=== PATIENT | female | born 1995 | race American Indian/Alaskan Native ===

== ENCOUNTER 2021-08-16 01:06 | Inpatient (IN) | payer OTHER ==
[2021-08-16] MEDS ORDERED: ceFAZolin 1 GM in Sodium Chloride 0.9% 50 ML IV ONE (02:15)
[2021-08-16] MEDS ORDERED: Oxytocin/Normal Saline 30 UNIT/500 ML BAG IV ONE (02:15)
[2021-08-16] MEDS ORDERED: Carboprost Tromethamine 250 MCG/1 ML Amp IM PRN ×3 (02:23→14:14)
[2021-08-16] MEDS ORDERED: Acetaminophen 325 MG Tab PO PRN ×2 (02:23→14:14)
[2021-08-16] MEDS ORDERED: Ondansetron 4 MG/2 ML SDV IVPUSH PRN ×2 (02:23→14:14)
[2021-08-16] MEDS ORDERED: Lidocaine 1% 30 ML SDV INJECT PRN (02:23)
[2021-08-16] MEDS ORDERED: Misoprostol 400 MCG (4 X 100 MCG TAB) RECTAL PRN ×2 (02:23→14:14)
[2021-08-16] MEDS ORDERED: Lactated Ringers 1,000 ML IV ONE (02:23)
[2021-08-16] MEDS ORDERED: Tranexamic Acid 1,000 MG in Sodium Chloride 0.9% 100 ML IV PRN ×3 (02:23→14:14)
[2021-08-16] MEDS ORDERED: Methylergonovine 0.2 MG/1 ML Amp IM PRN ×2 (02:23→14:14)
[2021-08-16] MEDS ORDERED: Ondansetron 4 MG/2 ML SDV ONE (02:23)
[2021-08-16] MEDS ORDERED: Sodium Chloride 0.9% 10 ML Syringe FLUSH PRN ×2 (02:23→08:03)
[2021-08-16] MEDS ORDERED: Lactated Ringers 1,000 ML IV SCH ×3 (02:30→08:15)
[2021-08-16] MEDS ORDERED: Oxytocin/Normal Saline 30 UNIT/500 ML BAG IV SCH ×2 (02:30→08:15)
[2021-08-16] MEDS ORDERED: EPINEPHrine 1 MG/ML SDV ONE ×2 (02:41→09:59)
[2021-08-16] MEDS ORDERED: fentaNYL 100 MCG/2 ML SDV ONE ×2 (02:41→08:19)
[2021-08-16] MEDS: Lactated Ringers 1,000 ML IV SCH ×5 (02:41→23:13)
--- NOTE | 2021-08-16 03:28 | PCM.PRNOTE ---
- Free Text/Narrative Note: Requested to provide analgesia to full term patient in severe pain. Upon entering the room, patient is sitting on edge of bed complaining of severe abdominal/pelvic pain and discomfort. Procedure was discussed with patient including adverse outcomes and expectations. Pt consented to analgesia, SAB/IT. Pt placed into a proper sitting position. Landmarks for SAB/IT were identified and marked. Hands were washed and appropriate PPE was applied. Back was prepped with betadine x3. A sterile, transparent, fenestrated drape was applied. Excess betadine was removed. Using 3 mL of a 1% lidocaine solution, a skin wheel was placed at the L2/L3 interspace. A 24 ga (4 inch) Pencan spinal needle was inserted until positive for CSF. Negative for heme or paresthesias. Injected fentanyl 30 mcg, sufentanil 25 mcg, and 7.5 mg of a 0.75% bupivacaine solution with an epi wash. Pt was placed left lateral tilt position for approximately 20 minutes. There were zero complications or adverse outcomes. Will continue to monitor. Procedure Date & Time: 08/16/21 [id number]
[2021-08-16 03:48] LABS: AMPHETAMINES,URINE NEGATIVE (NEGATIVE); BARBITURATES,URINE NEGATIVE (NEGATIVE); BENZODIAZEPINE,URINE NEGATIVE (NEGATIVE); MDMA (ECSTASY), URINE NEGATIVE (NEGATIVE); METHADONE,URINE NEGATIVE (NEGATIVE); METHAMPHETAMINES,URINE NEGATIVE (NEGATIVE); OPIATES,URINE NEGATIVE (NEGATIVE); OXYCODONE,URINE NEGATIVE (NEGATIVE); PHENCYCLIDINE,URINE NEGATIVE (NEGATIVE); TCA,URINE NEGATIVE (NEGATIVE)
--- NOTE | 2021-08-16 05:29 | HP ---
CHIEF COMPLAINT: Active labor. HISTORY OF PRESENT ILLNESS: Carmela is a 26yo G2, P0010 at 38 and 6/7ths weeks gestational age based on 1st trimester ultrasound. The patient reports she began to feel pelvic pressure and contractions at 9 p.m. on Tuesday, August 15. Around midnight, contractions were noted to be 3 minutes apart. The patient began heading to [place] for delivery when she had father of baby stop the car and EMS contacted because contractions became too intense. Enroute, Carmela had a low blood pressure, so patient was brought in by ambulance to this Labor and Delivery unit. Upon presentation to Labor and Delivery, the patient was 4 cm dilated, 90% effaced, and -1 station. 30 minutes later, patient was found to be 6 cm dilated, 95% effaced, and 0 station. Due to rapid progression of dilation, the patient was deemed not a candidate for transfer to [place]. REVIEW OF SYSTEMS: The patient denies headache, vision changes, fever, chest pain, shortness of breath, right upper quadrant pain, vaginal bleeding, leakage of fluid. Endorses contractions and pedal edema. OBSTETRICS HISTORY: Complete spontaneous in 2019. course complicated only by mild depression not treated with medication, morbid obesity, high risk for prior spontaneous , and impaired 1hr OGTT. care initiated in [place] with transfer of care to [place] [facility] at 31 weeks due to morbid obesity with plans for IOL on 08/24/2021. LABS: Blood type B positive, antibody screen negative, rubella negative, syphilis nonreactive, hep B negative, HIV negative, gonorrhea negative, chlamydia negative, hep C negative. TSH was 4.2. Impaired 1-hour glucose tolerance test of 155, 3-hour glucose tolerance test normal. Maternal quad screen negative. Growth ultrasound at 36 weeks revealed normal anatomy and estimated weight at 44th percentile with normal ABDIEL of 15 cm. ALLERGIES: No known drug allergies. CURRENT MEDICATIONS: vitamin. PAST MEDICAL HISTORY: History of 1 prior complete spontaneous at 8 weeks in 2019. No history of smoking. PAST SURGICAL HISTORY: No surgical history FAMILY HISTORY: No family history SOCIAL HISTORY: The patient lives in [place] with the father of her baby. They rehomed their 3 house cats in the last 3 months. The patient is an enrolled member of the [employer] and employed at [employer] in [place]. OBJECTIVE: Vital Signs: Temperature 98.7, blood pressure 119/60, heart rate 87, respiratory rate 18, weight 336 pounds, height 5 feet 6 inches. General: Alert, appears in moderate distress and using Nitrous Oxide for pain. HEENT: Normocephalic. Pupils equal, round, and reactive. Extraocular muscles intact. Lungs: Clear to auscultation bilaterally. Heart: Regular rate and rhythm without murmur. Abdomen: Obese, gravid. Pelvic: Cervical exam prior to AROM and FSE placement, 6+ cm, 95% effaced, 0 station. heart tones 140s to 150s, acels present, moderate variability. Due to abdominal girth tocometer not tracing contractions well. Indication of decels present, so IUPC placed and decels evaluated as early category 1 tracing. Contractions noted every 1 to 3 minutes, effective contractions with 185 MVUs. Extremities: 2+ pitting edema. Neurologic: No clonus. No obvious deficits. ADMIT LABS: Hemoglobin 13.8, platelets 185. UA positive for THC. COVID negative. Protein creatinine ratio elevated at 1129. ASSESSMENT: 1. G2, P0-0-1-0. 2. 38 and 6/7 weeks' intrauterine based on 1st trimester ultrasound. 3. Active labor. 4. Group B streptococcus negative. Rubella immune. Blood type B positive. 5. Obese. 6. THC positive on urine drug screen. 7. High-risk in 3rd trimester. 8. Not a candidate for transfer due to rapid dilation from 4 cm to 6 cm in 30 minutes. PLAN: Initially planned to transfer to [place], but patient no longer a candidate for transfer due to rapid dilation. The patient presents at 4 cm and progressed to 6 cm in 30 minutes. Orders were placed to admit for labor and delivery including nitrous oxide and intrathecal analgesia. Due to difficulty with external monitoring, artificial rupture of membranes performed at 2:15 a.m. and scalp electrode placed without complication. Intrathecal analgesia requested, placed and tolerated well by patient and fetus. Decels noted on heart tracings and tocometer not tracing due to abdominal girth resulting in placement of IUPC at 3:25 am for evaluation. Contractions noted to be effective with MVUs of 185. Patient was noted to be hypertensive with BP of 166/79 prior to analgesia administration. [facility] labs ordered and collected to evaluate for pre-eclampsia and need for administraton of MgSO4. Protein:Creatinine ratio is greater than 300, but suspect contamination from artificial rupture of membranes, scalp electrode and IUPC placement preceeding straight cath for specimen. All other PIH labs within normal limits. Blood pressure returned to normal range following intrathecal analgesia. Plan for Normal Spontaneous Vaginal Delivery. Patient agrees with plan, all questions answered. Assessment and plan per Dr. Ceballos. The patient is seen by myself and Dr. Ceballos. Seen with medical student. Patient was personally seen and examined with the medical student practitioner student, Raleigh Nicole. I reviewed the noted scribed on my behalf and necessary changes have been made to reflect my opinion on the history, exam, assessment, and plan. has preeclampsia without severe features when BP checked properly with proper cuff and relaxed. will follow clinically. [facility] /[id number] ANDREW
--- NOTE | 2021-08-16 06:03 | PN ---
DATE: 08/16/2021 SUBJECTIVE: The patient is comfortable status post intrathecal. OBJECTIVE: heart tones baseline around 140s range. Some variable decelerations versus other type of decelerations, difficult to discern as tocometer has a poor reading. Vaginal exam, 7 cm dilated, 100% effaced, 0 station, vertex suspected.. IUPC placed after discussion with the patient. Blood pressure 131/49. ASSESSMENT AND PLAN: Intrauterine at 38 and 6/7 weeks, confirmed with 8 and 6/7 week ultrasound, admitted in active labor. Not a transfer candidate due to rapid cervical dilation. complicated by obesity and impaired glucose tolerance. Group B Streptococcus negative, G2, P0-0-1-0. PLAN: IUPC placed as above for continued monitoring and evaluations and we will continue to follow closely with scalp electrode monitoring for heart rate and deceleration pattern. The patient understands and agrees with above treatment plan. [facility] /[id number]
--- NOTE | 2021-08-16 06:03 | PN ---
DATE: 08/16/2021 SUBJECTIVE: This is a 26-year-old, G2, P0-0-1-0 intrauterine at 38 and 6/7 weeks confirmed with 8 and 6/7 weeks ultrasound who presented via ambulance, transfer initially from the [facility], they intercepted at [facility], that presented with contractions in active labor. Changed from 4 cm to 6 cm within less than 30 minutes with GBS negative status, impaired glucose tolerance and obesity and was felt not to be a transfer candidate due to rapid dilation. There has been some issues detecting heart tones due to obesity. OBJECTIVE: Vital Signs: Stable. Last blood pressure 137/77. Appearance: Breathing through her contractions. heart tones, difficult to discern externally. Tocometer difficult to discern, but based on symptoms, contractions every 3 minutes. Vaginal exam reveals to be 6 cm, 100%, 0 station, vertex suspected. Artificial rupture of membranes done after discussion with the patient yielding copious amounts of clear fluid, and this was followed by scalp electrode for further monitoring and evaluation which was applied and tested and detecting heart tones. ASSESSMENT: 1. Intrauterine at 38 and 6/7 weeks, confirmed with 8 and 6/7 weeks ultrasound, contractions with active labor, with rapid cervical dilation not a transfer candidate. 2. Obesity. 3. GBS negative. 4. Impaired glucose tolerance. 5. G2, P0-0-1-0. PLAN: Patient would be admitted. Please see orders for further details. scalp electrode applied as above as well as artificial rupture of membranes to facilitate placement. We will continue to follow clinically and closely at this time. The patient is requesting intrathecal and we will call EPIC PRELUDE ANALYST. Labs reveal COVID test being negative. White cell 13.5, hemoglobin 13.8, and platelets 185. For full history and physical, please see Raleigh Nicole, MS3's notes. For this, H and P records were called for, reviewed, summarized and supplemented by patient history as well as review of systems notable for what is documented and reviewed fully otherwise. Please see her H and P for further dictation, seen and agreed. [facility] /[id number]
[2021-08-16] MEDS ORDERED: Methylergonovine 0.2 MG Tab PO PRN (08:03)
[2021-08-16] MEDS ORDERED: Oxytocin 10 Units/1 ML SDV IM PRN (08:03)
[2021-08-16] MEDS ORDERED: Citric Acid/Sodium Citrate Solution 30 ML Cup PO ONE (08:03)
[2021-08-16] MEDS ORDERED: ceFAZolin 2 GM in Premix Bag 1 BAG IV ONE (08:03)
--- NOTE | 2021-08-16 08:41 | PN ---
DATE: 08/16/2021 SUBJECTIVE: The patient is status post intrathecal. She is starting to feel some contractions. OBJECTIVE: Nurses noted around 6 a.m. that she was felt to be complete. heart tones while pushing do have some occasional recurrent variable decelerations, baseline around the 140s with acceleration seen. Tocometer reveals contractions every 2 to 3 minutes. Vaginal exam, with patient starting pushing, descent was noted. However, anterior cervical rim was felt, and she was not complete at this time. Pushing was stopped once this was noted and we will continue to follow clinically and closely. Serial blood pressures have waxed and waned and the patient notes that some blood pressures were taken while with a wrist cuff and not properly sized cuff, one of them most recently was 160/74; while this was on, subsequently a proper size cuff was applied, and her blood pressure was 148/66, with a heart rate of 96, and as she has had some elevated blood pressures, a PIH panel was done. BUN normal at 13, creatinine 0.79. AST, ALT, LDH and uric acid, all within normal ranges. CBC was notable for platelet count of 185 and a urinalysis did reveal a urine protein-creatinine ratio of >1100, with greater than 300 protein and 80 ketones with greater than 1.030 specific gravity on a cath specimen with urine drug screen positive for THC. ASSESSMENT AND PLAN: 1. Intrauterine at 38 and 6/7th weeks, confirmed with 8 and 6/7th week ultrasound, admitted in active labor with complicated by obesity, urine drug screen positive for THC. Not a transfer candidate having impaired glucose tolerance and G2, P0-0-1-0. 2. Preeclampsia without severe features. The patient now has had properly sized cuff and is using it properly while she is not in pain. Does not have a severe hypertensive range to warrant magnesium sulfate or blood pressure lowering medications, but I did discuss with patient following this clinically and closely and using the properly sized cuff and one that fits in the right area, not on her wrist. The patient understands and agrees with that treatment plan and we will continue to follow clinically and closely at this point in time. And as stated before, I believe her blood pressures have not been properly obtained and this was discussed with the patient and most recent one properly obtained was within non- severe range. [facility] /[id number] ANDREW
--- NOTE | 2021-08-16 08:53 | PCM.PRNOTE ---
- Free Text/Narrative Note: Requested to provide analgesia to full term patient in severe pain. Upon entering the room, patient is sitting on edge of bed complaining of severe abdominal/pelvic pain and discomfort. Procedure was discussed with patient including adverse outcomes and expectations. Pt consented to analgesia, SAB/IT. Pt placed into a proper sitting position. Landmarks for SAB/IT were identified and marked. Hands were washed and appropriate PPE was applied. Back was prepped with betadine x3. A sterile, transparent, fenestrated drape was applied. Excess betadine was removed. Using 3 mL of a 1% lidocaine solution, a skin wheel was placed at the L2/L3 interspace. A 24 ga (4 inch) Pencan spinal needle was inserted until positive for CSF. Negative for heme or paresthesias. Injected fentanyl 30 mcg, sufentanil 25 mcg, and 7.5 mg of a 0.75% bupivacaine solution. Pt was placed left lateral tilt position for approximately 20 minutes. There were zero complications or adverse outcomes. Will continue to monitor. Procedure Date & Time: 08/16/21 [id number]
[2021-08-16] MEDS ORDERED: fentaNYL 100 MCG/2 ML SDV ITHECAL ONE (09:59)
--- NOTE | 2021-08-16 12:17 | PN ---
DATE: 08/16/2021 SUBJECTIVE: The patient is starting to feel some contractions and pain. She is now status post her second intrathecal, she received it when she was about an anterior rim/9 cm. She has started to push at this point in time. OBJECTIVE: heart tones baseline around the 150s to 160s range. Tocometer reveals contractions every 2 to 3 minutes. Pitocin has been started after her second intrathecal. Vaginal exam, with pushing, descent is suspected with her being complete and 0 to +1 station with vertex suspected and hair is seen with caput noted. Scalp electrode remains on as well as IUPC. ASSESSMENT AND PLAN: Intrauterine at 38 and 6/7 weeks confirmed with 8 and 6/7 weeks ultrasound, admitted in active labor. complicated by obesity. Positive THC on urine drug screen. Impaired glucose tolerance. Not a transfer candidate due to rapid cervical dilation upon admission and preeclampsia without severe features. She has not had any severe headaches, visual changes, or upper abdominal pain. Her labs do not suggest severe preeclampsia and her blood pressures when taken appropriately have been out of the severe range. Therefore, we will continue to follow clinically and closely. The patient understands, agrees with above treatment plan, will continue pushing at this point in time. suspect been in second stage of labor for over 4 hours at this time. [facility] /[id number] ANDREW
[2021-08-16] MEDS ORDERED: Oxytocin/Normal Saline 60 UNIT/1,000 ML BAG ONE (12:26)
[2021-08-16] MEDS ORDERED: ePHEDrine 50 MG/ML SDV IVPUSH PRN (14:14)
[2021-08-16] MEDS ORDERED: Acetaminophen/oxyCODONE 325-5 MG Tab PO PRN (14:14)
[2021-08-16] MEDS ORDERED: diphenhydrAMINE 50 MG/ML SDV IVPUSH PRN (14:14)
[2021-08-16] MEDS ORDERED: Naloxone 2 MG/2 ML Syringe IVPUSH PRN (14:14)
[2021-08-16] MEDS: Simethicone 80 MG Tab.Chew PO SCH ×2 (18:11→20:07)
[2021-08-16] MEDS: Ketorolac 30 MG/ML SDV IVPUSH SCH (20:06)
[2021-08-16] MEDS: Acetaminophen/oxyCODONE 325-5 MG Tab PO PRN (23:04)
[2021-08-17] MEDS: Ketorolac 30 MG/ML SDV IVPUSH SCH ×2 (01:49→08:16)
[2021-08-17] MEDS: Acetaminophen/oxyCODONE 325-5 MG Tab PO PRN ×5 (03:56→20:17)
--- NOTE | 2021-08-17 07:17 | OR ---
DATE: 08/16/2021 PREOPERATIVE DIAGNOSES: 1. Intrauterine at 38-6/7 weeks, confirmed with 8-6/7 week ultrasound. 2. Prolonged second stage of labor - suspected. 3. Arrest of descent. 4. Concerns with status. 5. Admitted in active labor, not a transfer candidate with rapid cervical dilation. 6. Obesity with a BMI of 54.2. 7. Urine drug screen positive for THC. 8. GBS negative. 9. Impaired glucose tolerance. 10.Not a transfer candidate due to the above. 11.Preeclampsia without severe features. 12.Rubella nonimmune. 13.-0-1-0. POSTOPERATIVE DIAGNOSES: 1. Intrauterine at 38-6/7 weeks, confirmed with 8-6/7 week ultrasound - delivered. 2. Prolonged second stage of labor - suspected. 3. Arrest of descent. 4. Concerns with status. 5. Admitted in active labor, not a transfer candidate with rapid cervical dilation. 6. Obesity with a BMI of 54.2. 7. Urine drug screen positive for THC. 8. GBS negative. 9. Impaired glucose tolerance. 10.Not a transfer candidate due to the above. 11.Preeclampsia without severe features. 12.Rubella nonimmune. 13.-0-1-0. 14.[place] reddish tinged urine noted immediately after delivery, starting to clear to a more normal color with concentrated color of urine. 15.Right arm noted with delivery and entry into the uterus with superficial laceration noted with entry into the uterus on right posterior axillary line. PROCEDURE PERFORMED: 1. Artificial rupture of membranes. 2. scalp electrode. 3. IUPC. 4. Pitocin augmentation, and then subsequent primary low transverse with 2-layer uterine closure. OIL PROCESS STILLMAN: Sachi Nam MD, and Raleigh Nicole MS3. ANESTHESIA: Spinal converted to a general anesthetic due to ineffectiveness and need for timeliness of delivery. EBL: 500 mL. IV FLUIDS: 1200 mL. URINE OUTPUT: 200 mL and starting to clear in terms of hematuria with more concentrated color of urine. Start 1303, uterine incision 1305, delivery 1307, stop 1344. FINDING: Male. score of 4 and 9. Weight pending with right arm presenting through uterine incision. Please see below. DESCRIPTION OF PROCEDURE: After proper consent was obtained, the patient was brought to the operating room and spinal anesthesia was administered. Guerrero was placed in the preop under sterile condition. The abdomen was prepped and draped in normal sterile fashion. Patient was placed in supine position with left lateral tilt. A testing was then done with ineffective spinal noted and this was changed to general anesthetic due to timeliness. She subsequently underwent a general anesthesia and when MIDDLE SCHOOL HUMANITIES TEACHER said she was ready for incision, an incision was made on the lower abdomen in transverse Pfannenstiel-type fashion. This was carried down to the fascia and scored in midline. Subcutaneous tissue raked laterally bluntly, and fascial incision extended in transverse fashion using blunt technique, and superior and inferiorly, abdominal rectus and pyramidalis muscles dissected from the fascia in a blunt technique. Rectus muscle was in midline with blunt technique. Abdominal cavity was then entered in blunt technique and incision was extended superior and inferiorly with blunt technique. Titus O Retractor was introduced and used. Vesicouterine peritoneum was then identified, incised in transverse fashion with Metzenbaum scissors, and bladder flap was made digitally. A curvilinear incision was made on lower uterine segment at 1305 hours. Uterus was entered sharply with inadvertent superficial laceration that measured out to be 1 cm posterior axillary fold on the right side. Uterine incision was then extended in transverse fashion using blunt technique. Right arm then extruded from the uterine incision. vertex was brought up from the pelvis and attempted to be delivered through the incision. Right arm was placed back inside the uterus but then came out again, subsequently was put back into the uterus and the vertex was manipulated to be delivered through the uterine incision followed by rest of the infant without difficulty thereafter. Mouth and nares were suctioned. Cord was doubly clamped and cut, and was brought to team for resuscitation. Approximately 10 mL of cord blood was obtained for labs. Placenta was then delivered with gentle cord traction and fundal massage. Uterine cavity was then cleared of all blood clots and debris with lap sponge. Rudd clamps were used to grasp the uterine incision. This was closed in a running locked fashion and tied lateral margins with 1-0 Vicryl. Second imbricating layer was then applied with 1-0 Vicryl and tied at lateral margins. Left of midline, one [id number] stitch was required for hemostasis and right lateral portion incision required 2 [id number] stitches for hemostasis. First inspection of the uterine incision revealed hemostasis. Titus O retractor was then removed and paracolic gutters were then cleared of all blood clots and debris with lap sponge. Anterior cul-de-sac was then irrigated copiously and all blood clots were removed. Second and final inspection of the uterine incision and the anterior cul-de-sac revealed hemostasis. Rectus muscles were then reapproximated in midline with figure-of- eight stitch using 1-0 Vicryl. Fish retractor was used during this step and then removed. ernestina clamp were used to grasp the fascia and this was closed in running fashion and tied at lateral margins with 0 looped PDS. Subcutaneous tissue was irrigated copiously, hemostasis reassured. Skin was reapproximated with medium sindy. Sterile Aquacel dressing applied. Uterine fundus was firm, massaged at the conclusion of case -2 below umbilicus. No immediate complications were noted. Sponge, lap, and needle counts were correct. The patient received 3 g of Ancef preoperatively, Pitocin per protocol. Received Toradol at the conclusion of the case for pain control as well as she may need DESIGN DIRECTOR, we will discuss with MIDDLE SCHOOL HUMANITIES TEACHER. We will discuss the laceration with patient when she wakes and we will discuss with father at this point in time. Mother and are currently stable at the time of dictation. [facility] /[id number] MTDJoan
--- NOTE | 2021-08-17 07:17 | PN ---
DATE: 08/16/2021 SUBJECTIVE: The patient continues to push through her contractions. OBJECTIVE: heart tones baseline is increasing to 160s to 170s with early decelerations noted. Tocometer reveals contractions every 2 to 3 minutes. Pitocin is on at 4 milliunits per minute. Vaginal exam reveals her to be complete with good pushing effort but no descent compared to prior evaluation and essentially prior to that, I suspect that she has had marked caput than anything else in terms of station. In addition, I suspect that she has been complete for over probably 4 hours at this point in time based on her being almost 9 cm earlier this morning, then receiving intrathecal, and most likely was complete at that point in time as well. I did discuss this with the patient as well as increasing baseline and concerns with status at current time of dictation. Shared decision was made to proceed to call the OR crew in, have patient continued pushing with contractions, and if no further descent noted or delivery noted, we will proceed with primary low transverse . ASSESSMENT: Intrauterine at 38-6/7 weeks, confirmed with 8-6/7 weeks ultrasound. Concerns with status and nearing arrest of descent with prolonged second stage of labor suspected in a G2, P0-0-1-0 that presented in active labor, was 6 cm to 7 cm upon admission, which is well over almost 10 hours ago with preeclampsia without severe features and rubella nonimmune, group B Streptococcus negative, and impaired glucose tolerance. She is G2, P0-0-1-0 with urine drug screen positive for THC. PLAN: I did discuss with her and her male partner risks, benefits, alternatives, and complications of including but not limited to infection; bleeding; damage to organs such as bowel, bladder, tubes, uterus, or sometimes fetus; rarely needing a blood transfusion or further surgery; and rare maternal or . She understands, wishes to proceed. As above, we will proceed as soon as crew is ready and available if no further descent or delivery. I did discuss continued to watch maternal and status closely. I did also discuss this consent earlier, and she has signed a consent form at 10 a.m. in regard to this. Please see consent form in regard to this as well. We will proceed as soon as OR crew is ready and available with plans as above if no further descent noted. [facility] /[id number]
[2021-08-17] MEDS: Simethicone 80 MG Tab.Chew PO SCH ×4 (08:17→20:18)
[2021-08-17] MEDS: Docusate Sodium 100 MG Cap PO PRN ×2 (08:18→20:17)
[2021-08-17] MEDS: Prenatal Multivitamin with Calcium/Folic Acid/Iron Tab PO SCH (08:18)
[2021-08-17] MEDS: Lactated Ringers 1,000 ML IV SCH (08:26)
[2021-08-17] MEDS: Ibuprofen 800 MG Tab PO PRN (16:00)
--- NOTE | 2021-08-17 19:23 | PN ---
DATE: 08/17/2021 Postop day 1 status post primary low transverse under general anesthesia. SUBJECTIVE: No acute overnight events. Tolerating p.o. intake. The patient's Guerrero in place at this time with good urine output. She has passed flatus. Has not yet ambulated. She reports her pain is pretty intense this morning, rated 10/10 before receiving morning pain medications. She denies chest pain, shortness of breath, headache, vision changes, nausea. Endorses mild lochia and diffuse abdominal tenderness. OBJECTIVE: Vitals: Temp 98.4, heart rate 116, BP 134/92, respiratory rate 16. General: Appears in moderate distress. Lungs: Clear to auscultation bilaterally. Heart: S1 and S2 present. Tachycardic, regular rhythm. Abdomen: Obese. Aquacel dressing dry and intact. Extremities: RAKESH hose are on. +1 pitting edema. Neuro: No clonus. LABORATORY DATA: Hemoglobin 10.5, platelets 116 K. ASSESSMENT: 1. Intrauterine at 38-6/7 weeks, delivered. 2. Prolonged second stage of labor suspected. 3. Arrest of descent. 4. Concerns with status. 5. Admitted in active labor. Not a transfer candidate with rapid cervical dilation. 6. Obesity with a BMI of 54.2. 7. Urine drug screen positive for THC. 8. Group B Streptococcus negative. 9. Blood type B positive. 10.Rubella nonimmune. 11.Impaired glucose tolerance. 12.Not a transfer candidate due to the above. 13.Preeclampsia without severe features. 14.G2, now P1-0-1-1. 15.[place] reddish tinged urine noted immediately after delivery, now clear. PLAN: Will continue to follow clinically and closely. The patient encouraged to ambulate and do deep breathing. The patient in agreement with plan. All questions answered. The patient is seen with Dr. Ceballos. Assessment and plan under advisement of Dr. Ceballos. Seen with medical student. Patient was personally seen and examined with the medical student practitioner student, Raleigh Nicole. I reviewed the noted scribed on my behalf and necessary changes have been made to reflect my opinion on the history, exam, assessment, and plan [facility] /[id number] MTDJoan
[2021-08-18] MEDS: Acetaminophen/oxyCODONE 325-5 MG Tab PO PRN ×6 (00:40→22:30)
[2021-08-18] MEDS: Ibuprofen 800 MG Tab PO PRN ×3 (00:41→18:39)
[2021-08-18] MEDS: Docusate Sodium 100 MG Cap PO PRN ×2 (09:08→21:10)
[2021-08-18] MEDS: Prenatal Multivitamin with Calcium/Folic Acid/Iron Tab PO SCH (09:08)
[2021-08-18] MEDS: Simethicone 80 MG Tab.Chew PO SCH ×4 (09:08→21:10)
--- NOTE | 2021-08-18 14:02 | PN ---
DATE: 08/18/2021 Postop day 2 from primary low transverse under general anesthesia. SUBJECTIVE: No acute overnight events. Tolerating p.o. intake. The patient has passed gas, ambulating well, and good urine output. She reports pain is still intense without pain medications. However, after ibuprofen, she is able to ambulate well. She denies any chest pain, shortness of breath, headache, vision changes, or nausea. Endorses mild lochia and diffuse abdominal tenderness. OBJECTIVE: Vital Signs: Temperature 97.3, heart rate 91, blood pressure 134/81, and respiratory rate 16. General: The patient is up in bed, having breakfast, in no acute distress. Lungs: Clear to auscultation bilaterally. Heart: S1, S2 present. Regular rate and rhythm. Abdomen: Obese. Aquacel dressing dry and intact. Extremities: +1 pitting edema. Neurologic: No clonus. ASSESSMENT: As before. 1. Intrauterine at 38-6/7 weeks, delivered. 2. Prolonged second stage of labor, suspected. 3. Arrest of descent. 4. Concerns with status. 5. Admitted in active labor, not a transfer candidate due to rapid cervical dilation. 6. Obesity with BMI of 54.2. 7. Urine drug screen positive for THC. 8. Group B Streptococcus negative, blood type B-positive, rubella immune. 9. Impaired glucose tolerance. 10.Preeclampsia without severe features. 11.G2, now P1-0-1-1. 12.[place] reddish tinged urine noted immediately after delivery is now clear. 13.Thrombocytopenia. PLAN: The patient encouraged to ambulate. analysis consultant will see patient today. The patient had thrombocytopenia on labs yesterday. We will plan to recheck a CBC in the morning and plan for patient to discharge home tomorrow on 08/19/2021 pending clinical course. The patient is seen by myself and Dr. Ceballos. The assessment and plan under advisement of Dr. Ceballos. Seen with medical student. Patient was personally seen and examined with the medical student practitioner student, Raleigh Nicole. I reviewed the noted scribed on my behalf and necessary changes have been made to reflect my opinion on the history, exam, assessment, and plan [facility] /[id number] MTDD
[2021-08-19] MEDS: Acetaminophen/oxyCODONE 325-5 MG Tab PO PRN ×2 (03:44→08:13)
[2021-08-19] MEDS: Ibuprofen 800 MG Tab PO PRN (03:44)
[2021-08-19] MEDS: Prenatal Multivitamin with Calcium/Folic Acid/Iron Tab PO SCH (08:13)
[2021-08-19] MEDS: Docusate Sodium 100 MG Cap PO PRN (08:13)
[2021-08-19] MEDS: Simethicone 80 MG Tab.Chew PO SCH (08:13)
--- NOTE | 2021-08-20 01:30 | DISCH ---
ADMIT DIAGNOSES: 1. Intrauterine at 38-6/7 weeks' confirmed on first trimester ultrasound. 2. Admitted in active labor, not a transfer candidate with rapid cervical dilation. 3. Obesity with a body mass index of 54.2. 4. Urine drug screen positive for tetrahydrocannabinol. 5. Group B Streptococcus negative, rubella nonimmune, B positive blood type. 6. G2, P0-0-1-0. 7. Impaired glucose tolerance. DISCHARGE DIAGNOSES: 1. Intrauterine at 38-6/7 weeks' confirmed with first trimester ultrasound, delivered. 2. Prolonged second stage of labor suspected. 3. Arrest of descent. 4. Concerns with status. 5. Admitted in active labor, not a transfer candidate with rapid cervical dilation. 6. Obesity with body mass index of 54.2. 7. Urine drug screen positive for tetrahydrocannabinol. 8. Group B Streptococcus negative, rubella nonimmune, B positive blood type. 9. Impaired glucose tolerance. 10.Not a transfer candidate due to the above. 11.Preeclampsia without severe features. 12.[place] reddish tinged urine noted immediately after delivery, now clear. 13.Status post primary low transverse section under general anesthesia, delivered. 14.G2, now P1-0-1-1. 15. Thrombocytopenia - resolving. PROCEDURES: Nonstress test, artificial rupture of membranes, placement of scalp electrode, placement of intrauterine pressure catheter, Pitocin augmentation of labor, and primary low transverse section under general anesthesia. BRIEF HISTORY: Carmela is a 26-year-old G2, P0-0-1-0 at 38-6/7 weeks' gestational age based on first trimester ultrasound. The patient presented in active labor and was brought in by ambulance en route to deliver in [place]. Upon presentation to Labor and Delivery, the patient was 4 cm dilated, 90% effaced, and -1 station. 30 minutes later, the patient was found to be 6 cm dilated, 95% effaced, and 0 station. Due to rapid progression of dilation, the patient was deemed not a transfer candidate to [place]. records received and reviewed. LABS: Blood type B positive, antibody screen negative, rubella nonimmune, syphilis negative, hepatitis B negative, HIV negative, gonorrhea and chlamydia negative, hep C negative. Impaired 1-hour glucose tolerance test and maternal quad screen negative. The patient was measuring large for gestational age. Third trimester ultrasound revealed estimated weight at 44th percentile and amniotic fluid index normal at 15 cm. Upon admission to this L and D unit, we planned for normal spontaneous vaginal delivery. HOSPITAL COURSE: The patient presented in active labor with rapid dilation. Due to abdominal girth there was difficulty in tracing heart tones and contractions, AROM performed, FSE and later, IUPC placed (MVUs >185). Patient did have some elevated blood pressures, initally thought to be due to pain, as they improved following first Intrathecal anesthesia placement. PIH labs were drawn to evaluate, and Urine Protein: Creatinine ratio was >1100; diagnosis of Pre- eclampsia without severe features met. Blood pressures did improve after pain managed, but blood pressures rebounded to the 140s/80s, but again were inconsistent, as were the cuffs and cuff placement sites. As well +1 pitting edema was present, without any headaches, vision changes, RUQ pain, hyperreflexia. Planned to continue with . When patient was complete, pushing was attempted with minimal descent. While attempting to push, monitoring revealed decreased variability, no reactive accels and occasional late decels. At that point, the decision was made to proceed to a primary low transverse for arrest of descent, prolonged 2nd stage of labor, and intolerance. Proper consent was obtained and prep for procedure was initiated. At time of testing incision site for effective spinal anesthesia, anesthetic was not providing relief, so general anesthesia was provided. From incision to delivery of fetus was 4 minutes. Fetus presented with right arm through incision site and obtained right posterior axillary superficial laceration in procedure. score 4 and 9. The infant was resuscitated with 20 seconds of positive-pressure ventilation. No immediate complications following were noted. Patient weight >120kg, so 3g Ancef given for surgical prophylaxis. Following , urine was noted to have a pink reddish tinge and was clear by the time Guerrero was removed the next day. The patient did complain of intense abdominal pain on postop day 1. This was well improved with Toradol and Percocet. Guerrero was removed. The patient began voiding without complication. Clear urine, ambulating well, tolerating p.o. intake. Carmela did have trouble with initially. consultation was provided. Blood pressures began improving on postop day 2. On postop day 3, the patient was discharged in good spirits, feeling well. No complaints. Pain well controlled. Passing flatus. No bowel movement yet. DISCHARGE EXAMINATION: Vitals: Temp 98.5, heart rate 87, blood pressure 121/66, respiratory rate 16. General: Alert. No distress. Good spirits. Lungs: Clear to auscultation bilaterally. Heart: Regular rate and rhythm. Abdomen: Obese, diffusely tender. Uterus firm and below umbilicus. Wound with Aquacel dressing in place. Wound is clean, dry, and intact. Extremities: +1 pitting edema. No clonus. LABORATORY DATA: Admit hemoglobin 13.8, platelets 185. Urine Protein:Creatinine ratio > 1100. Post-op day 1: hemoglobin 10.5, platelets 116. Discharge hemoglobin 10.1, platelets 147. DISCHARGE CONDITION: Good. DISPOSITION: Home with family. MEDICATIONS: vitamin. Prescription provided for Percocet, docusate, breast pump. INSTRUCTIONS: Discussed with the patient do not lift greater than 20 pounds and pelvic rest x6 weeks. Instructed to seek immediate medical attention for fever, redness, drainage from incision site. FOLLOWUP: Will be on Tuesday with the Dr. Ceballos for staple removal. The patient is seen by myself and Dr. Ceballos. Assessment and plan are under advisement of Dr. Ceballos. patient evaluated,seen and note written above and changes made accordingly by -DHARMESHW Seen with medical student. Patient was personally seen and examined with the medical student practitioner student, Raleigh Nicole. I reviewed the noted scribed on my behalf and necessary changes have been made to reflect my opinion on the history, exam, assessment, and plan [facility] /[id number] [facility]ENTERJoan
== END 2021-08-19 10:00 | disposition home or self-care (01) | DRG 787 ==
LOC: DL.OBCHECK 01:06 → DL.OB 02:14 → OBSVTOIN 13:07 → DL.OB 08-18 14:59
PROVIDERS: ADMIT Family Medicine; ATTEND Family Medicine
PROC: 10D00Z1 Extraction of Products of Conception, Low, Open Approach (ICD-10-PCS; principal; 2021-08-16)
PROC: 10907ZC Drainage of Amniotic Fluid, Therapeutic from Products of Conception, Via Natural or Artificial Opening (ICD-10-PCS; 2021-08-16)
PROC: 10H07YZ Insertion of Other Device into Products of Conception, Via Natural or Artificial Opening (ICD-10-PCS; 2021-08-16)
PROC: 3E0R3BZ Introduction of Anesthetic Agent into Spinal Canal, Percutaneous Approach (ICD-10-PCS; 2021-08-16)
PROC: 00HU33Z Insertion of Infusion Device into Spinal Canal, Percutaneous Approach (ICD-10-PCS; 2021-08-16)
DX: O99.214 Obesity complicating childbirth (principal); O99.12 Other diseases of the blood and blood-forming organs and certain disorders involving the immune mechanism complicating childbirth; O14.04 Mild to moderate pre-eclampsia, complicating childbirth; O99.324 Drug use complicating childbirth; Z37.0 Single live birth; F12.90 Cannabis use, unspecified, uncomplicated; D69.6 Thrombocytopenia, unspecified; O99.814 Abnormal glucose complicating childbirth; Z20.822 Contact with and (suspected) exposure to COVID-19; Z3A.38 38 weeks gestation of pregnancy
CPT/HCPCS: 01961; 01967; 36415; 51702; 80305-QW; 81003; 82565; 82570; 83615; 84156; 84450; 84460; 84520; 84550; 85027; A9270-GY; J0171; J0690; J1885; J2405; J2590; J3010; J7120; U0002